=== PATIENT | female | born 1950 | race Caucasian/White ===

== ENCOUNTER 2019-11-12 14:00 | IRF | payer MEDICARE, OTHER, SELFPAY ==
--- NOTE | ~2019-11-12 | CT_ITS ---
EXAMINATION: CT brain wo con EXAM DATE: 11/14/2019 16:21 INDICATION: Centralized headaches. TECHNIQUE: Spiral CT of the head was performed without contrast. Axial, coronal and sagittal images were reviewed. The dose-length product (DLP) for this examination was 605.33 mGy-cm. The exposure w as tailored according to patient size, and iterative reconstruction (ASIR) was used as additional dos e reduction technique. There is no prior study for comparison. FINDINGS: Moderate-sized subacute appearing left occipital lobe infarction without hemorrhagic conver charu. Some dystrophic calcifications in the basal ganglia, cerebellum bilaterally. There is no acute intraparenchymal hemorrhage. No evidence of intraparenchymal brain mass lesion. No evidence of acut e infarction. Please note that initial head CT has limited sensitivity for small or acute infarction s. There is mild periventricular and subcortical hypodensity, nonspecific but probably related to sma ll vessel ischemic disease. There is mild prominence of the sulci and ventricles related to cerebra l atrophy. There is intracranial carotid arteriosclerosis. There are no extra-axial collections. There is no mass effect or midline shift. The orbits are unremarkable. Soft tissue is unremarkable. The visualized sinuses and mastoid air cells are well aerated. IMPRESSION: 1. Subacute moderate-sized left occipital lobe infarction. 2. No acute intracranial hemorrhage. Reviewed, dictated and finalized at location A. [employer]
[2019-11-12 14:20] VITALS: BP 107/54; PULSE 62; RESP 18; TEMP 36.9; O2SAT 98; BMI 26.2
--- NOTE | 2019-11-12 14:25 | ADMGEN ---
Arrived via personal vehicle with , terry. This patient, Mercedes Leon, was admitted to [facility] Room 226-02. Patient/family oriented to hospital policies and general routines including ID bracelet, bed and alarms, visiting hours, pain management, procedures, bathroom and other care routines, personal items, smoking policy, room service/diet, and visiting hours. Valuables list has been completed. Information on how to activate the Rapid Response Team has been discussed. Patient/Family are encouraged to report perceived risks to care and to ask questions if they do not understand what they are told or what they should do.
[2019-11-12] MEDS: predniSONE 2.5 MG TABLET PO (18:23)
[2019-11-12] MEDS: GABAPENTIN 300 MG CAPSULE PO (18:23)
[2019-11-12] MEDS: ATORVASTATIN 20 MG TABLET PO (21:17)
[2019-11-12 22:00] VITALS: BP 118/54; PULSE 71; RESP 18; TEMP 37.1; O2SAT 98
[2019-11-13 06:00] VITALS: BP 126/66; PULSE 78; RESP 18; TEMP 36.8; O2SAT 100
[2019-11-13] MEDS: LEVOTHYROXINE SODIUM 100 MCG TABLET PO (06:17)
--- NOTE | 2019-11-13 09:00 | WPDREHABHP ---
H&P: HPI History of Present Illness Chief complaint: CVA Narrative: Mercedes Leon is a 68 year old female HISTORY OF PRESENT ILLNESS: The patient's primary rehab impairment category is stroke The etiologic diagnosis is left occipital lobe infarct I saw this patient [id number] on November 13, 2019 at 9:00 a.m. The patient is a 68-year-old right-handed woman with a prior medical history of follicular lymphoma, adrenal insufficiency ( on chronic steroids ), and hypothyroidism who presented to [facility] on November 09, 2019 with dysarthria acute mental status changes and the leftward gaze deviation with right-sided lito-neglect. Her reported seeing her around 7:30 a.m.. When she went to the basement to care for her dozens of rabbits the foster. Lane went down to check on her she was sitting in the chair with gaze deviation to the left and was unable to answer questions appropriately. Her speech was garbled. CT of the head showed no bleed. CTA of the head and neck showed is 56% occlusion of the proximal right carotid artery. Chest x-ray was clear. She was not given tPA as she presented out of the window. She was transferred to [facility] the same day for further evaluation and treatment. Neurology was consulted and she was started on aspirin and statin. MRI demonstrated an acute left occipital lobe infarct. MRA showed no signs of high-grade stenosis and vertebral arteries appear to be patent. Lumbar puncture was performed due to concern with lymphoma history but looked completely benign. Echocardiogram demonstrated an ejection fraction of 60 to 65% with severe mitral annular in some calcifications but only trace regurgitation. She passed her swallowing test and is on a mechanical soft diet with thin liquids. Physical examination continues to reveal right-sided weakness rightSided lito-neglect, balance impairment, decreased gross motor control, and decreased safety awareness. DVT prophylaxis with SCDs Therapy was initiated at the acute care facility and the patient transferred to us from [facility] on November 12, 2019 FALLS OR SURGERIES: The patient has had no major surgeries in the 100 days prior to admission. They had no falls in the past year. They had no falls with injury in the past year. PAST MEDICAL HISTORY: follicular lymphoma, adrenal insufficiency, hypothyroidism, depression proceed PAST SURGICAL HISTORY: superficial lymph node biopsy twice, right breast by speak, thyroidectomy, parathyroidectomy. SOCIAL HISTORY: Former smoker. No alcohol or drug use. 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 FAMILY HISTORY: patient denies having any significant family history but for the daughter can be obtained when I meet the family members PRIOR LEVEL OF FUNCTION: Eating was INDEPENDENT Oral Care was INDEPENDENT Toileting Hygiene was INDEPENDENT Shower/Bathing was INDEPENDENT Upper Body Dressing was INDEPENDENT Lower Body Dressing was INDEPENDENT Donning/[place] Footwear was INDEPENDENT Rolling Left and Right was INDEPENDENT Sit to Lying was INDEPENDENT Lying to Sitting was INDEPENDENT Sit to Stand was INDEPENDENT Bed to Chair Transfers was INDEPENDENT Toilet Transfers was INDEPENDENT Walking was INDEPENDENT 999 feet with NO DEVICE Wheelchair Mobility was NOT APPLICABLE PRIOR TO ADMISSION Stairs were INDEPENDENT CURRENT LEVEL OF FUNCTION: Eating was partial or moderate assistance Oral Care was partial or moderate assistance Toileting Hygiene was partial or more assistance Shower/Bathing was partial or moderate assistance Upper Body Dressing was partial of motor system Lower Body Dressing was substantial or maximal assistance Donning/[place] Footwear was substantial maximal assist Rolling Left and Right was supervision or touch assist Sit to Lying was supervision or touch assistance Lying to Sitting was supervision or touch assistance Sit to Stand was substa
[2019-11-13] MEDS: CITALOPRAM HYDROBROMIDE 20 MG TABLET 40 MG PO (09:53)
[2019-11-13] MEDS: FERROUS GLUCONATE 324 MG TABLET PO (09:54)
[2019-11-13] MEDS: POTASSIUM CHLORIDE 20 MEQ TABLET.ER PO (09:54)
[2019-11-13] MEDS: calcitrioL 0.25 MCG CAPSULE 0.5 MCG PO (09:54)
[2019-11-13] MEDS: GABAPENTIN 300 MG CAPSULE PO ×3 (09:54→17:34)
[2019-11-13] MEDS: predniSONE 5 MG TABLET PO (09:55)
[2019-11-13] MEDS: ASPIRIN 325 MG TABLET PO (09:55)
[2019-11-13] MEDS: FLUDROCORTISONE ACETATE 0.1 MG TABLET PO (09:55)
[2019-11-13] MEDS: ACETAMINOPHEN 325 MG TABLET 650 MG PO (12:45)
--- NOTE | 2019-11-13 13:15 | PCSTNOTE ---
Please refer to the Bedside Swallow Evaluation in the EMR.
[2019-11-13 13:27] VITALS: BMI 26.2
[2019-11-13 14:00] VITALS: BP 129/59; PULSE 63; RESP 19; TEMP 36.7; O2SAT 97
--- NOTE | 2019-11-13 14:31 | RPD ---
INDIVIDUALIZED PLAN OF CARE FOR Mercedes Leon Brief Synthesis of Pre-Admission Screen, Post-Admission Evaluation and Therapy Evaluations: The patient presents to rehab with left occipital lobe infarct. Comorbidities include Follicular lymphoma, adrenal insufficiency, hypothyroidism, depression, dysphagia, expressive aphasia, right-sided weakness and lito-neglect, hyperlipidemia, chronic steroid use. The patient requires physician services for neurology services, medical oversight, and coordination of care. Emotional needs will be monitored as depression is a common sequelae of stroke. The patient needs physician monitoring and treatment of adrenal insufficiency, monitoring for adverse reactions to new medications, monitoring for infection, and pain control. The patient requires nursing services for frequent neuro checks, anticoagulation therapy, medication management and education, pressure relief and skin care management, monitoring of labs, bowel and bladder training, and fall/safety precautions. Deficits include:ADLs, Balance, Cognition, Endurance, Mobility, Pain Management, ROM, Safety, Speech, Strength, Swallowing, Transfers Cafeteria Operator/Case Management for: Discharge Planning and Patient/Family Counseling Physical Therapy: 5 days per week for 75 minutes. Treatments may include: Therapeutic Exercise, Gait Training, Neuromuscular Re-education, Transfer Training, Community Reintegration, Bed Mobility, Patient/Family Education, Wheelchair Mobility Group Therapy/Concurrent Therapy Rationales: -Improve attention span during functional activities in a distracted environment. -Enhance problem solving and/or adequate judgment skills during functional activities in a distracted environment. -Promote increased safety awareness in a distracted environment to reduce fall risk with functional tasks, transfers, and ambulation to allow a more safe, self-sufficient return to the home environment. -Improve dynamic balance skills to promote safety and independence with functional activities in a distracted environment for maximum gain. Occupational Therapy: 5 days per week for 75 minutes. Treatments may include: Therapeutic Exercise, Therapeutic Activity, Cognitive Training, Self-Care Transfer Training, Community Reintegration, Home Management, Patient/Family Education, Wheelchair Mobility Training, Energy Conservation Training Group Therapy/Concurrent Therapy Rationales: -Allow therapist to observe and teach generalization and carry-over of skills learned in individual therapy. -Enhance problem solving and sequencing skills during therapeutic activities in a distracted environment. -Promote increased safety awareness in a realistic setting to reduce fall risk with functional tasks due to visual and verbal distractions. -Increase functional level with ADLs, ADL transfers and use of adaptive equipment through therapeutic activities with others while promoting safety to allow a more safe, self-sufficient return home. Speech Therapy: 5 days per week for 30 minutes. Treatments may include: Dysphasia Therapy, Speech/Language/Communication Therapy, Cognitive Training, Patient/Family Education Group Therapy/Concurrent Therapy - Rationale: -Allow therapist to observe and teach generalization and carry-over of skills learned in individual therapy. -Improve comprehension skills with complex or abstract ideas through discussion in a realistic setting. -Enhance problem solving skills with complex issues during activities in a distracted environment. -Promote increased memory skills and concentration in a distracted environment for a safe transition home. -Improve attention and focus with language/communication skills in a realistic and supportive therapeutic setting. -Allow for practice of expression of basic needs and ideas through functional activities with others. Medical Prognosis: Good Anticipated Length of Stay: 12 days Rehab Goals: Eating Goal: 06-Independent Oral H
[2019-11-13] MEDS: predniSONE 2.5 MG TABLET PO (17:34)
[2019-11-13 20:00] VITALS: PULSE 54; RESP 18; O2SAT 98
[2019-11-13] MEDS: ATORVASTATIN 20 MG TABLET PO (20:33)
[2019-11-13 21:45] VITALS: BP 112/53; PULSE 54; RESP 18; TEMP 36.3; O2SAT 98
[2019-11-14 06:00] VITALS: BP 147/61; PULSE 62; RESP 16; TEMP 36.6; O2SAT 100
[2019-11-14] MEDS: LEVOTHYROXINE SODIUM 100 MCG TABLET PO (06:26)
[2019-11-14] MEDS: calcitrioL 0.25 MCG CAPSULE 0.5 MCG PO (07:55)
[2019-11-14] MEDS: GABAPENTIN 300 MG CAPSULE PO ×3 (07:55→17:34)
[2019-11-14] MEDS: POTASSIUM CHLORIDE 20 MEQ TABLET.ER PO (07:55)
[2019-11-14] MEDS: CITALOPRAM HYDROBROMIDE 20 MG TABLET 40 MG PO (07:56)
[2019-11-14] MEDS: predniSONE 5 MG TABLET PO (07:56)
[2019-11-14] MEDS: FERROUS GLUCONATE 324 MG TABLET PO (07:56)
[2019-11-14] MEDS: ASPIRIN 325 MG TABLET PO (07:56)
[2019-11-14] MEDS: FLUDROCORTISONE ACETATE 0.1 MG TABLET PO (07:57)
[2019-11-14] MEDS: ACETAMINOPHEN 325 MG TABLET 650 MG PO ×2 (07:58→15:46)
[2019-11-14] MEDS: ONDANSETRON HCL ODT 4 MG TABLET (08:44)
[2019-11-14 14:00] VITALS: BP 133/72; PULSE 52; RESP 18; TEMP 36.6; O2SAT 96
--- NOTE | 2019-11-14 17:15 | WPDNEURORHBP ---
Subjective Date/time seen: 11/14/19 17:15 Interval history: This 68-year-old woman is here status post left occipital lobe infarct with this dense right-sided visual field defect trouble reading or writing from which she is improving however the visual field defect remains the same she also has right-sided hemiparesis which is also improving she was complaining of some headache without any nausea vomiting or change in the mental status and a CT scan was performed this afternoon it shows old infarct or subacute infarct and knows evidence of hemorrhage she has not any distress The patient denies any chest pain shortness of breath or any further weakness in fact if anything overall she is improving and according to her she is able to write and read with the iPad in her hands and also able to watch TV better than in the previous few days since she has had stroke The patient is afebrile without any fever chills sore throat diarrhea vomiting. Review of Systems Review of Systems: All systems reviewed & are unremarkable except as noted in HPI and below Functional Status Ambulation Ability Ability to Ambulate 10 Feet: Minimum Assistance X 1 Ability to Ambulate 50 Feet With 2 Turns: Minimum Assistance X 1 Ability to Ambulate 150 Feet: Minimum Assistance X 1 Ambulation Assistive Devices: None Transfers Ability Ability to Transfer In/Out of Chair: Contact Guard Exam Const: General: comfortable and no acute distress HENMT: General nose exam: Normal nares present Mouth: Yes moist mucous membranes Eyes: Other: Right papular fissure is more prominent than the left otherwise the visual field defect is roughly about the same on the right side Neck: Neck: supple and no JVD Resp: Effort & Inspection: normal respiratory effort Auscultation: clear to auscultation bilaterally Cardio: Rate: regular rate Rhythm: regular rhythm GI: GI Palp: Yes Soft to palpation Auscultation: normal bowel sounds Skin: General skin exam: normal color and no rashes or lesions noted Neuro: Other: patient is awake and alert and well oriented time place and person has normal speech and memory functions abnormal visual field on the right side with right homonymous hemianopsia right-sided hemiparesis and needing assistance all the activities of daily living Extrem: General: normal to inspection Psych: Mental Status: mental status grossly normal Objective Data Vital Signs Vital Signs: Vital Signs - 24 hr 11/13/19 20:00 11/13/19 21:45 11/14/19 06:00 Temperature 36.3 C L 36.6 C Pulse Rate 54 L 54 L 62 Respiratory Rate 18 18 16 Blood Pressure 112/53 L 147/61 H Pulse Oximetry 98 98 100 11/14/19 14:00 Temperature 36.6 C Pulse Rate 52 L Respiratory Rate 18 Blood Pressure 133/72 Pulse Oximetry 96 Intake/Output Intake/Output: Intake & Output 11/11/19 11/12/19 11/13/19 11/14/19 23:59 23:59 23:59 23:59 Intake Total 240 720 600 Balance 240 720 600 Meds/Results Medications: Active Medications Generic Name Dose Route Start Last Admin Trade Name Freq PRN Reason Stop Dose Admin Acetaminophen 650 mg 11/13/19 12:27 11/14/19 15:46 Tylenol Tablet PO 650 mg Q4H PRN Administration Pain Aspirin 325 mg 11/13/19 08:00 11/14/19 07:56 Aspirin PO 325 mg DAILY@0800 PADMINI Administration Atorvastatin Calcium 20 mg 11/12/19 21:00 11/13/19 20:33 Lipitor PO 20 mg HS [facility] Administration Calcitriol 0.5 mcg 11/13/19 09:00 11/14/19 07:55 Rocaltrol PO 0.5 mcg QAM PADMINI Administration Calcium Carbonate 500 mg 11/13/19 09:00 11/14/19 07:56 Os-Samm 500 +D Tablet PO 500 mg DAILY PADMINI Administration Citalopram Hydrobromide 40 mg 11/13/19 09:00 11/14/19 07:56 Celexa PO 40 mg DAILY PADMINI Administration Ferrous Gluconate 324 mg 11/13/19 08:00 11/14/19 07:56 Ferrous Gluconate PO 324 mg DAILY@0800 PADMINI Administration Fludrocortisone Acetate 0.1 mg 11/13/19 09:00 11/14/19 07:57
[2019-11-14] MEDS: predniSONE 2.5 MG TABLET PO (17:34)
[2019-11-14 17:37] LABS: Basophils Percent Auto 0.4 % (0.2-1.2); Eosinophils Percent Auto 0.6 % (0-4.4); Hematocrit 41.6 % (37.0-47.0); Hemoglobin 13.4 g/dL (12.0-15.0); Immature Granulocyte Absolute 0.01 K/mm3 (0.00-0.031); Immature Granulocyte Percent A 0.1 % (0-0.5); Lymphocytes Absolute Auto 0.98 K/mm3 (0.9-3.2); Mean Corpuscular HGB Conc 32.2 g/dl (32-36); Mean Corpuscular Hemoglobin 30.9 pg (26-34); Mean Corpuscular Volume 96.1 fl (80-100); Mean Platelet Volume 11.1 fl (7.4-10.4); Monocytes Absolute Auto 0.7 K/mm3 (0.1-0.6); Monocytes Percent Auto 9.6 % (2.6-8.5); Neutrophils Absolute Auto 5.3 K/mm3 (1.3-6.7); Neutrophils Percent Auto 75.3 % (45.5-73.1); Platelet Count Result 227 k/mm3 (150-375); Red Blood Count 4.33 M/mm3 (4.2-5.4); Red Cell Distribution Width 11.9 % (11.5-14.5)
[2019-11-14 17:45] LABS: Blood Urea Nitrogen 23 mg/dL (7-17); Calcium 8.3 mg/dL (8.4-10.2); Carbon Dioxide 37 mmol/L (22-30); Chloride 97 mmol/L (98-107); Estimated CRCL calculation 44 ml/min; Estimated Glomerular Filt Rate > 60; Glucose 94 mg/dL (65-105); Potassium 3.9 mmol/L (3.4-5.0); Sodium 135 mmol/L (137-145)
[2019-11-14] MEDS: ATORVASTATIN 20 MG TABLET PO (20:37)
--- NOTE | 2019-11-14 21:56 | PC.NURSE ---
0844: Dr. Ng notified of patient c/o nausea and headache. Orders received for Zofran 4 mg every 4 hours prn for nausea. Zofran given for nausea and tylenol given for BAIG. V/s WNL. 1600: c/o intermittent frontal headache rated 4/10. b/p 110/76, pulse 76. Denies any other symptoms other than headache. Dr. Ng made aware and orders received for CT brain without contrast to r/o stroke. 1700: Dr. Ng in to see and review CT scan results. No new orders. Patient denies headache or nausea.
[2019-11-14 22:00] VITALS: BP 116/55; PULSE 55; RESP 16; TEMP 36.5; O2SAT 96
--- NOTE | 2019-11-15 03:29 | PC.NURSE ---
Daylight Savings Time For Daylight Savings Time Ending in the Fall - Clocks are moved back. For Daylight Savings Time Beginning in the Spring - Clocks are moved ahead. For [facility], the time of change occurs at 0200 hrs. Time is taken from the electrical prospecting observer. This entry on the patient's chart recognizes the change in time reflected during documentation. Example: 2 entries for vital signs may be charted for 0200 hrs.
[2019-11-15] MEDS: ACETAMINOPHEN 325 MG TABLET 650 MG PO ×3 (05:24→23:02)
[2019-11-15] MEDS: LEVOTHYROXINE SODIUM 100 MCG TABLET PO (05:24)
[2019-11-15 06:00] VITALS: BP 128/76; PULSE 59; RESP 19; TEMP 36.4; O2SAT 100
[2019-11-15] MEDS: GABAPENTIN 300 MG CAPSULE PO ×3 (09:37→18:03)
[2019-11-15] MEDS: FLUDROCORTISONE ACETATE 0.1 MG TABLET PO (09:37)
[2019-11-15] MEDS: calcitrioL 0.25 MCG CAPSULE 0.5 MCG PO (09:38)
[2019-11-15] MEDS: POTASSIUM CHLORIDE 20 MEQ TABLET.ER PO (09:38)
[2019-11-15] MEDS: CITALOPRAM HYDROBROMIDE 20 MG TABLET 40 MG PO (09:39)
[2019-11-15] MEDS: ASPIRIN 325 MG TABLET PO (09:39)
[2019-11-15] MEDS: FERROUS GLUCONATE 324 MG TABLET PO (09:39)
[2019-11-15] MEDS: predniSONE 5 MG TABLET PO (09:39)
--- NOTE | 2019-11-15 14:58 | WPDNEURORHBP ---
Subjective Date/time seen: 11/15/19 14:58 Interval history: this 68-year-old woman with underlying treatment for a renal in the insufficiency is here for left occipital stroke which has left her with a dense right-sided visual field defect mild right-sided hemiparesis and also inability to perform the activities of daily living the patient is complaining of what sounds like restless skin no and asking for some help. She is relatively anxious and tense % and it may very well be her underlying prior personality She denies any headache nausea vomiting chest pain shortness of breath fever chills sore throat Review of Systems Review of Systems: All systems reviewed & are unremarkable except as noted in HPI and below Functional Status Ambulation Ability Ability to Ambulate 10 Feet: Minimum Assistance X 1 Ability to Ambulate 50 Feet With 2 Turns: Minimum Assistance X 1 Ability to Ambulate 150 Feet: Minimum Assistance X 1 Ambulation Assistive Devices: None Transfers Ability Ability to Transfer In/Out of Chair: Contact Guard Exam Const: General: comfortable and no acute distress HENMT: General nose exam: Normal nares present Mouth: Yes moist mucous membranes Eyes: General: appearance normal, both eyes and all related structures Other: right-sided dense visual field defect Neck: Neck: supple and no JVD Resp: Effort & Inspection: normal respiratory effort Auscultation: clear to auscultation bilaterally Cardio: Rate: regular rate Rhythm: regular rhythm GI: GI Palp: Yes Soft to palpation Auscultation: normal bowel sounds Skin: General skin exam: normal color and no rashes or lesions noted Neuro: Other: patient is awake and alert well oriented still has subtle is speech defect dense right-sided homonymous hemianopsia and the right-sided hemiparesis for which she needs the assistance in the activities of daily living I saw her having quite a bit of restless leg and that will be an additional diagnosis will treat her symptomatically with the Requip Extrem: General: normal to inspection Psych: Mental Status: mental status grossly normal Objective Data Vital Signs Vital Signs: Vital Signs - 24 hr 11/14/19 14:00 11/14/19 22:00 11/15/19 06:00 Temperature 36.6 C 36.5 C 36.4 C L Pulse Rate 52 L 55 L 59 L Respiratory Rate 18 16 19 Blood Pressure 133/72 116/55 L 128/76 Pulse Oximetry 96 96 100 Intake/Output Intake/Output: Intake & Output 11/12/19 11/13/19 11/14/19 11/16/19 23:59 23:59 23:59 00:59 Intake Total 240 720 840 720 Balance 240 720 840 720 Meds/Results Medications: Active Medications Generic Name Dose Route Start Last Admin Trade Name Freq PRN Reason Stop Dose Admin Acetaminophen 650 mg 11/13/19 12:27 11/15/19 09:41 Tylenol Tablet PO 650 mg Q4H PRN Administration Pain Aspirin 325 mg 11/13/19 08:00 11/15/19 09:39 Aspirin PO 325 mg DAILY@0800 PADMINI Administration Atorvastatin Calcium 20 mg 11/12/19 21:00 11/14/19 20:37 Lipitor PO 20 mg HS PADMINI Administration Calcitriol 0.5 mcg 11/13/19 09:00 11/15/19 09:38 Rocaltrol PO 0.5 mcg QAM PADMINI Administration Calcium Carbonate 500 mg 11/13/19 09:00 11/15/19 09:38 Os-Samm 500 +D Tablet PO 500 mg DAILY PADMINI Administration Citalopram Hydrobromide 40 mg 11/13/19 09:00 11/15/19 09:39 Celexa PO 40 mg DAILY PADMINI Administration Ferrous Gluconate 324 mg 11/13/19 08:00 11/15/19 09:39 Ferrous Gluconate PO 324 mg DAILY@0800 PADMINI Administration Fludrocortisone Acetate 0.1 mg 11/13/19 09:00 11/15/19 09:37 Florinef PO 0.1 mg DAILY PADMINI Administration Gabapentin 300 mg 11/12/19 17:00 11/15/19 12:50 Neurontin PO 300 mg TID PADMINI Administration Levothyroxine Sodium 100 mcg 11/13/19 06:30 11/15/19 05:24 Synthroid PO 100 mcg DAILY@0630 PADMINI Administration Nonformulary Drug- 1 each 11/13/19 09:00 11/15/19 09:40 Fludricortisone 0. PO 12/13/19 09:01 1 each
[2019-11-15 15:00] VITALS: BP 111/61; PULSE 58; RESP 16; TEMP 36.2; O2SAT 95
[2019-11-15] MEDS: predniSONE 2.5 MG TABLET PO (18:04)
[2019-11-15] MEDS: ATORVASTATIN 20 MG TABLET PO (21:28)
[2019-11-15 21:59] VITALS: BP 123/67; PULSE 65; RESP 18; TEMP 37.1; O2SAT 96
[2019-11-16] MEDS: LEVOTHYROXINE SODIUM 100 MCG TABLET PO (05:46)
[2019-11-16 05:58] VITALS: BP 118/62; PULSE 62; RESP 18; TEMP 36.8; O2SAT 99
[2019-11-16] MEDS: calcitrioL 0.25 MCG CAPSULE 0.5 MCG PO (10:16)
[2019-11-16] MEDS: GABAPENTIN 300 MG CAPSULE PO ×3 (10:17→16:52)
[2019-11-16] MEDS: predniSONE 5 MG TABLET PO (10:17)
[2019-11-16] MEDS: ASPIRIN 325 MG TABLET PO (10:17)
[2019-11-16] MEDS: POTASSIUM CHLORIDE 20 MEQ TABLET.ER PO (10:17)
[2019-11-16] MEDS: CITALOPRAM HYDROBROMIDE 20 MG TABLET 40 MG PO (10:17)
[2019-11-16] MEDS: FLUDROCORTISONE ACETATE 0.1 MG TABLET PO (10:18)
[2019-11-16] MEDS: FERROUS GLUCONATE 324 MG TABLET PO (10:18)
[2019-11-16] MEDS: ACETAMINOPHEN 325 MG TABLET 650 MG PO (11:52)
[2019-11-16 14:00] VITALS: BP 112/60; PULSE 69; RESP 20; TEMP 36.5; O2SAT 97
[2019-11-16] MEDS: predniSONE 2.5 MG TABLET PO (18:46)
[2019-11-16] MEDS: ATORVASTATIN 20 MG TABLET PO (20:01)
[2019-11-16 22:00] VITALS: BP 113/58; PULSE 54; RESP 57; TEMP 36.6; O2SAT 96
[2019-11-17] MEDS: LEVOTHYROXINE SODIUM 100 MCG TABLET PO (05:43)
[2019-11-17 06:00] VITALS: BP 164/74; PULSE 62; RESP 18; TEMP 36.7; O2SAT 99
[2019-11-17 08:00] VITALS: PULSE 62; RESP 18; O2SAT 99
[2019-11-17] MEDS: CITALOPRAM HYDROBROMIDE 20 MG TABLET 40 MG PO (08:45)
[2019-11-17] MEDS: GABAPENTIN 300 MG CAPSULE PO ×3 (08:45→17:30)
[2019-11-17] MEDS: ASPIRIN 325 MG TABLET PO (08:45)
[2019-11-17] MEDS: predniSONE 5 MG TABLET PO (08:45)
[2019-11-17] MEDS: POTASSIUM CHLORIDE 20 MEQ TABLET.ER PO (08:45)
[2019-11-17] MEDS: FLUDROCORTISONE ACETATE 0.1 MG TABLET PO (08:46)
[2019-11-17] MEDS: FERROUS GLUCONATE 324 MG TABLET PO (08:46)
[2019-11-17] MEDS: calcitrioL 0.25 MCG CAPSULE 0.5 MCG PO (08:46)
--- NOTE | 2019-11-17 12:55 | PCDIET ---
Nutrition Follow-Up Complete: No nutrition diagnosis at this time. Patient will continue to consume 75% of meals or more Goal met. Average meal consumption is 83%. Nutrition recommendation: Recommend continuation of Heart Healthy diet. Last recorded weight is 63 kg. Bowel Motility: +BM 11/12 Labs Reviewed: From 11/13 - Na(135), K93.9), BUN(23), Cr(0.9), Ca(8.3) Meds Noted: KCl, Prednisone. Requip, Zofran, Synthroid, Celexa, ferrous Gluconate, Ca carbonate + D Additional Notes: Pt states appetite is good. No GI complaints. Provided pt and family with stroke MNT. Follow up every 5 days.
--- NOTE | 2019-11-17 13:56 | WPDNEURORHBP ---
Subjective Date/time seen: 11/17/19 13:56 Interval history: this 68-year-old woman is here after having had left occipital stroke which has left her with the dense right-sided homonymous hemianopsia higher level balance problem and right-sided weakness which has gradually improved quite a bit she denies any headache nausea vomiting chest pain shortness of breath fever chills sore throat she still has balance issues which needs to be addressed post discharge also Review of Systems Review of Systems: All systems reviewed & are unremarkable except as noted in HPI and below Functional Status Ambulation Ability Ability to Ambulate 10 Feet: Contact Guard Ability to Ambulate 50 Feet With 2 Turns: Contact Guard Ability to Ambulate 150 Feet: Contact Guard Ambulation Assistive Devices: None Transfers Ability Ability to Transfer In/Out of Chair: Standby Assistance Exam Const: General: comfortable and no acute distress HENMT: General nose exam: Normal nares present Mouth: Yes moist mucous membranes Eyes: General: appearance normal, both eyes and all related structures Neck: Neck: supple and no JVD Resp: Effort & Inspection: normal respiratory effort Auscultation: clear to auscultation bilaterally Cardio: Rate: regular rate Rhythm: regular rhythm GI: GI Palp: Yes Soft to palpation Auscultation: normal bowel sounds Skin: General skin exam: normal color and no rashes or lesions noted Neuro: Other: patient is awake and alert will oriented times place and person has normal speech language functions rather dense right-sided homonymous hemianopsia and needs assistance because of the visual field defect and higher level balance problem the right-sided weakness has significantly improved Extrem: General: normal to inspection Psych: Mental Status: mental status grossly normal Objective Data Vital Signs Vital Signs: Vital Signs - 24 hr 11/16/19 14:00 11/16/19 22:00 11/17/19 06:00 Temperature 36.5 C 36.6 C 36.7 C Pulse Rate 69 54 L 62 Respiratory Rate 20 57 H 18 Blood Pressure 112/60 113/58 L 164/74 H Pulse Oximetry 97 96 99 11/17/19 08:00 Temperature Pulse Rate 62 Respiratory Rate 18 Blood Pressure Pulse Oximetry 99 Intake/Output Intake/Output: Intake & Output 11/14/19 11/15/19 11/16/19 11/17/19 22:59 23:59 23:59 23:59 Intake Total 960 480 Balance 960 480 Meds/Results Medications: Active Medications Generic Name Dose Route Start Last Admin Trade Name Freq PRN Reason Stop Dose Admin Acetaminophen 650 mg 11/13/19 12:27 11/16/19 11:52 Tylenol Tablet PO 650 mg Q4H PRN Administration Pain Aspirin 325 mg 11/13/19 08:00 11/17/19 08:45 Aspirin PO 325 mg DAILY@0800 PADMINI Administration Atorvastatin Calcium 20 mg 11/12/19 21:00 11/16/19 20:01 Lipitor PO 20 mg HS [facility] Administration Calcitriol 0.5 mcg 11/13/19 09:00 11/17/19 08:46 Rocaltrol PO 0.5 mcg QAM PADMINI Administration Calcium Carbonate 500 mg 11/13/19 09:00 11/17/19 08:46 Os-Samm 500 +D Tablet PO 500 mg DAILY PADMINI Administration Citalopram Hydrobromide 40 mg 11/13/19 09:00 11/17/19 08:45 Celexa PO 40 mg DAILY PADMINI Administration Ferrous Gluconate 324 mg 11/13/19 08:00 11/17/19 08:46 Ferrous Gluconate PO 324 mg DAILY@0800 PADMINI Administration Fludrocortisone Acetate 0.1 mg 11/13/19 09:00 11/17/19 08:46 Florinef PO 0.1 mg DAILY PADMINI Administration Gabapentin 300 mg 11/12/19 17:00 11/17/19 08:45 Neurontin PO 300 mg TID PADMINI Administration Levothyroxine Sodium 100 mcg 11/13/19 06:30 11/17/19 05:43 Synthroid PO 100 mcg DAILY@0630 PADMINI Administration Nonformulary Drug- 1 each 11/13/19 09:00 11/17/19 08:47 Fludricortisone 0. PO 12/13/19 09:01 1 each 05mg DAILY PADMINI Administration Ondansetron HCl 4 mg 11/14/19 08:42 Zofran Odt PO Q4H PRN Nausea And Vomiting Potassium Chloride 20 meq 11/13/19 08:00 11/17/19 0
[2019-11-17 14:00] VITALS: BP 113/51; PULSE 68; RESP 19; TEMP 36.6; O2SAT 99
--- NOTE | 2019-11-17 14:20 | PCNSR ---
On 11/17/19, the student, Earnestine Reed, provided care and completed [facility] documentation on this patient. I have reviewed the student's documentation and agree with the findings.
--- NOTE | 2019-11-17 15:16 | PCCCNOTE ---
On 11/17/19, the student, [Ricardo Duckworth ], provided care and completed [facility] documentation on this patient. I have reviewed the student's documentation and agree with the findings.
[2019-11-17] MEDS: predniSONE 2.5 MG TABLET PO (17:30)
[2019-11-17] MEDS: ATORVASTATIN 20 MG TABLET PO (21:40)
[2019-11-17 22:00] VITALS: BP 135/53; PULSE 62; RESP 18; TEMP 36.8; O2SAT 98
[2019-11-18] VITALS (7 sets, daily range): BP systolic 114–147; BP diastolic 49–67; PULSE 59–94; RESP 16–22; TEMP 36.5–36.6; O2SAT 95–100
[2019-11-18] MEDS: LEVOTHYROXINE SODIUM 100 MCG TABLET PO (06:22)
[2019-11-18] MEDS: ASPIRIN 325 MG TABLET PO (08:43)
[2019-11-18] MEDS: POTASSIUM CHLORIDE 20 MEQ TABLET.ER PO (08:44)
[2019-11-18] MEDS: CITALOPRAM HYDROBROMIDE 20 MG TABLET 40 MG PO (08:44)
[2019-11-18] MEDS: FERROUS GLUCONATE 324 MG TABLET PO (08:44)
[2019-11-18] MEDS: GABAPENTIN 300 MG CAPSULE PO ×3 (08:45→18:57)
[2019-11-18] MEDS: calcitrioL 0.25 MCG CAPSULE 0.5 MCG PO (08:45)
[2019-11-18] MEDS: FLUDROCORTISONE ACETATE 0.1 MG TABLET PO (08:45)
[2019-11-18] MEDS: predniSONE 5 MG TABLET PO (08:46)
--- NOTE | 2019-11-18 12:13 | WPDNEURORHBP ---
Subjective Date/time seen: 11/18/19 12:13 Interval history: This 68-year-old white woman is here after having had left occipital stroke with dense right-sided homonymous hemianopsia and right-sided weakness from which she is improving overall and she will be discharged in couple of days her is asking for the outpatient PT OT and speech order which I have summarized it and in fact have taken care of her medication list and the discharge planning she denies any headache nausea vomiting chest pain shortness of breath fever chills sore throat and doing remarkably well Review of Systems Review of Systems: All systems reviewed & are unremarkable except as noted in HPI and below Functional Status Ambulation Ability Ability to Ambulate 10 Feet: Contact Guard Ability to Ambulate 50 Feet With 2 Turns: Contact Guard Ability to Ambulate 150 Feet: Contact Guard Ambulation Assistive Devices: None Transfers Ability Ability to Transfer In/Out of Chair: Standby Assistance Exam Const: General: comfortable and no acute distress HENMT: General nose exam: Normal nares present Mouth: Yes moist mucous membranes Eyes: General: appearance normal, both eyes and all related structures Other: right-sided visual field defect Neck: Neck: supple and no JVD Resp: Effort & Inspection: normal respiratory effort Auscultation: clear to auscultation bilaterally Cardio: Rate: regular rate Rhythm: regular rhythm GI: GI Palp: Yes Soft to palpation Auscultation: normal bowel sounds Skin: General skin exam: normal color and no rashes or lesions noted Neuro: Other: patient is awake and alert will oriented to time place and person the speech language functions are normal vasyl examination apart from the right-sided visual field defect is normal right-sided hemiparesis has significantly improved she does have Helder balance problem related to visual field defect and also subtle but present right-sided hemiparesis Extrem: General: normal to inspection Psych: Mental Status: mental status grossly normal Objective Data Vital Signs Vital Signs: Vital Signs - 24 hr 11/17/19 14:00 11/17/19 22:00 11/18/19 06:00 Temperature 36.6 C 36.8 C 36.5 C Pulse Rate 68 62 59 L Respiratory Rate 19 18 18 Blood Pressure 113/51 L 135/53 L 131/60 Pulse Oximetry 99 98 100 Intake/Output Intake/Output: Intake & Output 11/15/19 11/16/19 11/17/19 11/18/19 23:59 23:59 23:59 23:59 Intake Total 960 720 240 Balance 960 720 240 Meds/Results Medications: Active Medications Generic Name Dose Route Start Last Admin Trade Name Eric PRN Reason Stop Dose Admin Acetaminophen 650 mg 11/13/19 12:27 11/16/19 11:52 Tylenol Tablet PO 650 mg Q4H PRN Administration Pain Aspirin 325 mg 11/13/19 08:00 11/18/19 08:43 Aspirin PO 325 mg DAILY@0800 PADMINI Administration Atorvastatin Calcium 20 mg 11/12/19 21:00 11/17/19 21:40 Lipitor PO 20 mg HS [facility] Administration Calcitriol 0.5 mcg 11/13/19 09:00 11/18/19 08:45 Rocaltrol PO 0.5 mcg QAM PADMINI Administration Calcium Carbonate 500 mg 11/13/19 09:00 11/18/19 08:45 Os-Samm 500 +D Tablet PO 500 mg DAILY PADMINI Administration Citalopram Hydrobromide 40 mg 11/13/19 09:00 11/18/19 08:44 Celexa PO 40 mg DAILY PADMINI Administration Ferrous Gluconate 324 mg 11/13/19 08:00 11/18/19 08:44 Ferrous Gluconate PO 324 mg DAILY@0800 PADMINI Administration Fludrocortisone Acetate 0.1 mg 11/13/19 09:00 11/18/19 08:45 Florinef PO 0.1 mg DAILY PADMINI Administration Gabapentin 300 mg 11/12/19 17:00 11/18/19 08:45 Neurontin PO 300 mg TID PADMINI Administration Levothyroxine Sodium 100 mcg 11/13/19 06:30 11/18/19 06:22 Synthroid PO 100 mcg DAILY@0630 PADMINI Administration Nonformulary Drug- 1 each 11/13/19 09:00 11/18/19 08:46 Fludricortisone 0. PO 12/13/19 09:01 1 each 05mg DAILY PADMINI Administration Ondansetron HCl 4 mg 11/14/19 08:
[2019-11-18] MEDS: predniSONE 2.5 MG TABLET PO (18:57)
[2019-11-18] MEDS: ATORVASTATIN 20 MG TABLET PO (20:40)
[2019-11-19 05:08] LABS: Hematocrit 40.8 % (37.0-47.0); Hemoglobin 13.4 g/dL (12.0-15.0); Mean Corpuscular HGB Conc 32.8 g/dl (32-36); Mean Corpuscular Hemoglobin 31.3 pg (26-34); Mean Corpuscular Volume 95.3 fl (80-100); Mean Platelet Volume 10.5 fl (7.4-10.4); Platelet Count Result 262 k/mm3 (150-375); Red Blood Count 4.28 M/mm3 (4.2-5.4); Red Cell Distribution Width 11.9 % (11.5-14.5); White Blood Count 6.3 K/mm3 (4.5-10.0)
[2019-11-19 05:21] LABS: Blood Urea Nitrogen 22 mg/dL (7-17); Carbon Dioxide 34 mmol/L (22-30); Chloride 98 mmol/L (98-107); Cholesterol 159 mg/dL (0-200); Estimated CRCL calculation 36 ml/min; Estimated Glomerular Filt Rate 49; Glucose 91 mg/dL (65-105); HDL Direct 49 mg/dL; Sodium 135 mmol/L (137-145); Triglycerides 74 mg/dL (<150)
[2019-11-19 05:31] LABS: LDL Cholesterol Direct 106 mg/dL
[2019-11-19 06:00] VITALS: BP 117/55; PULSE 53; RESP 16; TEMP 36.2; O2SAT 95
[2019-11-19] MEDS: LEVOTHYROXINE SODIUM 100 MCG TABLET PO (06:24)
[2019-11-19] MEDS: FERROUS GLUCONATE 324 MG TABLET PO (08:18)
[2019-11-19] MEDS: ASPIRIN 325 MG TABLET PO (08:18)
[2019-11-19] MEDS: predniSONE 5 MG TABLET PO (08:18)
[2019-11-19] MEDS: calcitrioL 0.25 MCG CAPSULE 0.5 MCG PO (08:18)
[2019-11-19] MEDS: POTASSIUM CHLORIDE 20 MEQ TABLET.ER PO (08:18)
[2019-11-19] MEDS: GABAPENTIN 300 MG CAPSULE PO ×3 (08:18→16:52)
[2019-11-19] MEDS: CITALOPRAM HYDROBROMIDE 20 MG TABLET 40 MG PO (08:19)
[2019-11-19] MEDS: FLUDROCORTISONE ACETATE 0.1 MG TABLET PO (08:19)
--- NOTE | 2019-11-19 10:00 | WPDNEURORHBP ---
Subjective Date/time seen: this 68-year-old woman is here after having had rather dense left occipital stroke which has left her with the dense right-sided homonymous hemianopsia DIS balance imbalance and right-sided weakness from a all of which is she is improving quite well except the visual field defect I think with which she is getting used to it and able to read and write fairly well and better than before The patient denies any headache nausea vomiting chest pain or shortness of breath fever chills or sore throat Review of Systems Review of Systems: All systems reviewed & are unremarkable except as noted in HPI and below Functional Status Ambulation Ability Ability to Ambulate 10 Feet: Standby Assistance Ability to Ambulate 50 Feet With 2 Turns: Standby Assistance Ability to Ambulate 150 Feet: Contact Guard Ambulation Assistive Devices: None Transfers Ability Ability to Transfer In/Out of Chair: Standby Assistance Exam Const: General: comfortable and no acute distress HENMT: General nose exam: Normal nares present Mouth: Yes moist mucous membranes Eyes: General: appearance normal, both eyes and all related structures Neck: Neck: supple and no JVD Resp: Effort & Inspection: normal respiratory effort Auscultation: clear to auscultation bilaterally Cardio: Rate: regular rate Rhythm: regular rhythm GI: GI Palp: Yes Soft to palpation Auscultation: normal bowel sounds Skin: General skin exam: normal color and no rashes or lesions noted Neuro: Other: patient is awake alert evaluated time place and person has normal speech notes functions normal cranial examination except the right-sided visual field defect much improved right-sided hemiparesis and improved balance Extrem: General: normal to inspection Psych: Mental Status: mental status grossly normal Objective Data Vital Signs Vital Signs: Vital Signs - 24 hr 11/19/19 14:00 11/19/19 22:00 11/20/19 06:00 Temperature 36.8 C 36.6 C 36.3 C L Pulse Rate 70 58 L 74 Respiratory Rate 16 18 18 Blood Pressure 96/41 L 121/66 118/64 Pulse Oximetry 100 98 97 Intake/Output Intake/Output: Intake & Output 11/17/19 11/18/19 11/19/19 11/20/19 23:59 23:59 23:59 23:59 Intake Total 678 760 5700 Balance 229 745 3790 Meds/Results Medications: Active Medications Generic Name Dose Route Start Last Admin Trade Name Freq PRN Reason Stop Dose Admin Acetaminophen 650 mg 11/13/19 12:27 11/16/19 11:52 Tylenol Tablet PO 650 mg Q4H PRN Administration Pain Aspirin 325 mg 11/13/19 08:00 11/19/19 08:18 Aspirin PO 325 mg DAILY@0800 PADMINI Administration Atorvastatin Calcium 20 mg 11/12/19 21:00 11/19/19 20:56 Lipitor PO 20 mg HS PADMINI Administration Calcitriol 0.5 mcg 11/13/19 09:00 11/19/19 08:18 Rocaltrol PO 0.5 mcg QAM PADMINI Administration Calcium Carbonate 500 mg 11/13/19 09:00 11/19/19 08:18 Os-Samm 500 +D Tablet PO 500 mg DAILY PADMINI Administration Citalopram Hydrobromide 40 mg 11/13/19 09:00 11/19/19 08:19 Celexa PO 40 mg DAILY PADMINI Administration Ferrous Gluconate 324 mg 11/13/19 08:00 11/19/19 08:18 Ferrous Gluconate PO 324 mg DAILY@0800 PADMINI Administration Fludrocortisone Acetate 0.1 mg 11/13/19 09:00 11/19/19 08:19 Florinef PO 0.1 mg DAILY PADMINI Administration Gabapentin 300 mg 11/12/19 17:00 11/19/19 16:52 Neurontin PO 300 mg TID PADMINI Administration Levothyroxine Sodium 100 mcg 11/13/19 06:30 11/20/19 06:12 Synthroid PO 100 mcg DAILY@0630 PADMINI Administration Nonformulary Drug- 1 each 11/13/19 09:00 11/19/19 08:19 Fludricortisone 0. PO 12/13/19 09:01 1 each 05mg DAILY PADMINI Administration Ondansetron HCl 4 mg 11/14/19 08:42 Zofran Odt PO Q4H PRN Nausea And Vomiting Potassium Chloride 20 meq 11/13/19 08:00 11/19/19 08:18 Kcl Tablet PO 20 meq DAILY@0800 PADMINI Administration Prednisone 2.5 mg 11/12/19 17:00
[2019-11-19 14:00] VITALS: BP 96/41; PULSE 70; RESP 16; TEMP 36.8; O2SAT 100
[2019-11-19] MEDS: predniSONE 2.5 MG TABLET PO (16:52)
[2019-11-19] MEDS: ATORVASTATIN 20 MG TABLET PO (20:56)
[2019-11-19 22:00] VITALS: BP 121/66; PULSE 58; RESP 18; TEMP 36.6; O2SAT 98
[2019-11-20 06:00] VITALS: BP 118/64; PULSE 74; RESP 18; TEMP 36.3; O2SAT 97
[2019-11-20] MEDS: LEVOTHYROXINE SODIUM 100 MCG TABLET PO (06:12)
[2019-11-20] MEDS: POTASSIUM CHLORIDE 20 MEQ TABLET.ER PO (09:05)
[2019-11-20] MEDS: GABAPENTIN 300 MG CAPSULE PO (09:05)
[2019-11-20] MEDS: ASPIRIN 325 MG TABLET PO (09:05)
[2019-11-20] MEDS: CITALOPRAM HYDROBROMIDE 20 MG TABLET 40 MG PO (09:05)
[2019-11-20] MEDS: predniSONE 5 MG TABLET PO (09:05)
[2019-11-20] MEDS: FLUDROCORTISONE ACETATE 0.1 MG TABLET PO (09:06)
[2019-11-20] MEDS: FERROUS GLUCONATE 324 MG TABLET PO (09:06)
--- NOTE | 2019-11-24 15:20 | DS_ITS ---
DATE OF DISCHARGE: 11/20/2019 DISCHARGE ACUTE REHAB DIAGNOSIS: Primary rehab impairment category of a stroke with etiological diagnosis of left occipital lobe infarct. DISCHARGE ACTIVE COMORBID CONDITIONS: 1. Hypothyroidism. 2. Depression. 3. Adrenal insufficiency. 4. Follicular lymphoma. REASON FOR ADMISSION: The patient with the follicular lymphoma, adrenal insufficiency for which she was on chronic steroids along with the hypothyroidism. Initially presented to [facility] on 11/09/2019, with complaints of dysarthria and acute changes in the mental status along with the left gaze deviation with the right-sided hemineglect. As per the , he saw her around 07:30 a.m. when she went to the basement to care for the dozens of rabbits, the foster. went down to check on her, she was sitting in the chair with gaze deviated to the left and was unable to answer any questions and her speech was garbled. CT of the head revealed no bleed. 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 Chest x-ray was clear. She did not receive tPA. She presented out of the window. She was transferred to [facility] same day for further evaluation, where neurology service was consulted and she was started on aspirin and statin. MRI documented left occipital lobe infarct of acute in nature. MRA revealed no high-grade stenosis. Vertebral arteries were patent. Lumbar puncture was done due to the concern of the lymphoma history, but looked completely benign. Echocardiogram with 60% to 65% ejection fraction, severe mitral annular calcification with trace regurgitation. She passed the swallowing test, was started on mechanical soft diet with thin liquids. Physical therapy was started on the acute care for right-sided weakness, hemineglect, balance dysfunction, and decreased gross motor control, along with the safety unawareness. LEVEL OF FUNCTION AT THE TIME OF ADMISSION: The patient was independent in eating, required supervision for oral hygiene, toileting, bathing, partial assistance for upper body dressing, supervision for lower body dressing, footwear. She was independent for rolling in bed, sit to lying, lying to sitting. She required supervision for sit to stand, chair transfer, toilet transfer, partial assistance for car transfer, walking 10 feet, 50 feet with 2 turns, 150 feet, 10 feet on uneven surfaces, curb or step, 4 steps, 12 steps, picking up object and the wheelchair was not applicable. ANTICIPATED REHAB GOALS AT THE TIME OF ADMISSION: Were to make her independent in all the modalities, except to require supervision for the curb or step, 4 steps, 12 steps, picking up object. LEVEL OF FUNCTION AT THE TIME OF DISCHARGE: She became independent in eating, oral hygiene, toileting, required only supervision for bathing, became independent in upper body dressing, but required supervision for the lower body dressing. She also became independent in footwear, rolling in bed, sit to lying, lying to sitting, sit to stand, chair transfer, and car transfer, but required supervision for the toilet transfer, walking 10 feet, 50 feet with 2 turns, 150 feet, 10 feet on uneven surfaces, curb or step, 4 steps, 12 steps, and picking up objects and the wheelchair was not applicable. HOSPITAL COURSE: During the hospitalization, she was involved in the physical therapy and occupational therapy on a regular basis. No other consultants were involved. At the time of discharge, she was walking 10 feet with standby assistance, 50 feet with 2 turns standby assistance, 150 feet with contact guard and she was able to transfer in and out of chair standby assistance. General physical examination remained stable and so as the neurological examination and the vital signs were
== END 2019-11-20 11:00 | disposition home or self-care (01) | DRG 57 ==
PROVIDERS: Admitting Provider Psychiatry & Neurology Neurology; PCP Internal Medicine Medical Oncology; Visit Provider Psychiatry & Neurology Neurology
DX: I69.351 Hemiplegia and hemiparesis following cerebral infarction affecting right dominant side (principal); E27.40 Unspecified adrenocortical insufficiency; I69.311 Memory deficit following cerebral infarction; I69.322 Dysarthria following cerebral infarction; I69.398 Other sequelae of cerebral infarction; H53.461 Homonymous bilateral field defects, right side; E03.9 Hypothyroidism, unspecified; F32.9 Major depressive disorder, single episode, unspecified; G25.81 Restless legs syndrome; Z87.891 Personal history of nicotine dependence; Z85.72 Personal history of non-Hodgkin lymphomas; Z79.52 Long term (current) use of systemic steroids; Z90.89 Acquired absence of other organs
CPT/HCPCS: 36415; 70450; 80048; 80061; 85025; 85027; 87081; 92507; 92523; 92610; 97110; 97112; 97116; 97129; 97130; 97150; 97162; 97166; 97167; 97530; 97535; A9270; J7512